=== PATIENT | male | born 1965 | race Two or more races ===

== ENCOUNTER 2024-09-18 06:10 | Day surgery (SDC) | payer OTHER ==
[2024-09-18] MEDS ORDERED: fentaNYL CITRATE 50 MCG/ML AMPUL IV PUSH ONE (12:15)
[2024-09-18] MEDS ORDERED: MIDAZOLAM HCL 2 MG/2 ML VIAL IV ONE (12:15)
[2024-09-18] MEDS ORDERED: DIPHENHYDRAMINE HCL 50 MG/ML VIAL 1ML IV ONE (12:15)
== END 2024-09-18 14:00 | disposition home or self-care (01) ==
LOC: AMB-ENDOS 06:10
PROVIDERS: ATTEND Internal Medicine
DX: D12.5 Benign neoplasm of sigmoid colon (principal); K62.5 Hemorrhage of anus and rectum; K63.5 Polyp of colon; K59.00 Constipation, unspecified

== ENCOUNTER 2024-12-18 07:00 | Day surgery (SDC) | payer OTHER ==
[2024-12-18] MEDS ORDERED: DIPHENHYDRAMINE HCL 50 MG/ML VIAL 1ML IV ONE (10:00)
[2024-12-18] MEDS ORDERED: MIDAZOLAM HCL 2 MG/2 ML VIAL IV ONE (10:00)
[2024-12-18] MEDS ORDERED: fentaNYL CITRATE 50 MCG/ML AMPUL IV PUSH ONE (10:00)
== END 2024-12-18 12:05 | disposition home or self-care (01) ==
LOC: CIR.AMB 07:00
PROVIDERS: ATTEND Internal Medicine
DX: D12.4 Benign neoplasm of descending colon (principal); D12.5 Benign neoplasm of sigmoid colon; K63.5 Polyp of colon